=== PATIENT | female | born 1930 | race Caucasian/White ===

== ENCOUNTER 2018-04-15 16:43 | Inpatient (IN) | payer OTHER ==
[~2018-04-15] VITALS: Ht 160 cm; Wt 49.9 kg
[2018-04-15] MEDS ORDERED: XANAX XR0.5 MG (17:20)
== END 2018-04-16 18:25 | disposition expired | DRG 291 ==
LOC: ER 16:43 → ICU-2 20:38
PROC: 4A033R1 Measurement of Arterial Saturation, Peripheral, Percutaneous Approach (ICD-10-PCS; principal; 2018-04-15)
PROC: 3E0F7GC Introduction of Other Therapeutic Substance into Respiratory Tract, Via Natural or Artificial Opening (ICD-10-PCS; 2018-04-15)
PROC: B246ZZZ Ultrasonography of Right and Left Heart (ICD-10-PCS; 2018-04-15)
PROC: BW40ZZZ Ultrasonography of Abdomen (ICD-10-PCS; 2018-04-16)
DX: I11.0 Hypertensive heart disease with heart failure (principal); K72.00 Acute and subacute hepatic failure without coma; A41.9 Sepsis, unspecified organism; R65.20 Severe sepsis without septic shock; A04.8 Other specified bacterial intestinal infections; J90 Pleural effusion, not elsewhere classified; I50.33 Acute on chronic diastolic (congestive) heart failure; E86.0 Dehydration; I48.0 Paroxysmal atrial fibrillation; I95.89 Other hypotension; E03.8 Other specified hypothyroidism; R39.2 Extrarenal uremia; E83.51 Hypocalcemia; E78.00 Pure hypercholesterolemia, unspecified; I27.29 Other secondary pulmonary hypertension; I34.0 Nonrheumatic mitral (valve) insufficiency; R57.0 Cardiogenic shock; D64.89 Other specified anemias